=== PATIENT | male | born 2005 | race Caucasian/White ===

== ENCOUNTER 2024-10-25 22:18 | Inpatient (IN) | payer OTHER ==
[~2024-10-25] VITALS: Ht 167.6 cm; Wt 68.2 kg
[2024-10-25 23:18] LABS: BASO # 0.1 10^3/uL (0.0-0.2); EOS # 0.4 10^3/uL (0.0-0.5); EOS % 4.5 % (0.0-3.0); HEMATOCRIT 44.8 % (42.0-52.0); HEMOGLOBIN 15.2 g/dl (13.5-17.5); LYMPH # 3.5 10^3/uL (1.5-5.0); LYMPH % 35.4 % (24.0-44.0); MEAN CORPUSCULAR HEMOGLOBIN 28.9 pg (27.0-33.0); MEAN CORPUSCULAR HGB CONC 33.9 g/dl (32.0-36.5); MEAN CORPUSCULAR VOLUME 85.2 fl (80.0-96.0); MONO # 0.9 10^3/uL (0.0-0.8); MONO % 8.9 % (2.0-8.0); NEUTROPHILS # 4.9 10^3/uL (1.5-8.5); NEUTROPHILS % 50.1 % (36.0-66.0); PLATELET COUNT, AUTOMATED 230 10^3/uL (150-450); RED BLOOD COUNT 5.26 10^6/uL (4.30-6.10); WHITE BLOOD COUNT 9.8 10^3/uL (4.0-10.0)
[2024-10-25 23:38] LABS: INR 0.99; PARTIAL THROMBOPLASTIN TIME 24.7 SECONDS (24.8-34.2); PROTHROMBIN TIME 13.4 SECONDS (12.5-14.5)
[2024-10-25 23:42] LABS: ETHYL ALCOHOL (ETHANOL) < 0.003 % (0.000-0.010)
[2024-10-25 23:43] LABS: CPK CREATINE PHOSPHOKINASE 173 U/L (46-171)
[2024-10-25 23:44] LABS: SALICYLATE LEVEL < 3.0 MG/DL (<30)
[2024-10-25 23:46] LABS: ALBUMIN 4.2 G/DL (3.2-5.2); ALKALINE PHOSPHATASE 77 U/L (40-129); ALT/SGPT 15 U/L (7.0-40); AST/SGOT 15 U/L (<34); BILIRUBIN,DIRECT 0.1 MG/DL (<0.4); BILIRUBIN,TOTAL 0.3 MG/DL (0.3-1.2); BLOOD UREA NITROGEN 15 MG/DL (9-23); CALCIUM LEVEL 8.8 MG/DL (8.5-10.1); CARBON DIOXIDE LEVEL 26 MMOL/L (20-31); CHLORIDE LEVEL 104 MMOL/L (98-107); GLOMERULAR FILTRATION RATE > 90.0 (>60); GLUCOSE, FASTING 94 MG/DL (60-100); POTASSIUM SERUM 3.7 MMOL/L (3.5-5.1); SODIUM LEVEL 140 MMOL/L (136-145); THYROID STIMULATING HORMONE 2.753 uIU/ML (0.55-4.78); TOTAL PROTEIN 7.2 G/DL (5.7-8.2)
[2024-10-25] MEDS: NS (Normal Saline) 0.9% 1,000 ML IV ONE (23:53)
[2024-10-25 23:54] LABS: AMPHETAMINES LEVEL URINE NEGATIVE (NEGATIVE); BARBITURATES URINE NEGATIVE (NEGATIVE); BENZODIAZEPINES URINE NEGATIVE (NEGATIVE); CANNABINOIDS URINE NEGATIVE (NEGATIVE); COCAINE METABOLITE URINE NEGATIVE (NEGATIVE); METHADONE URINE NEGATIVE (NEGATIVE); PHENCYCLIDINE URINE NEGATIVE (NEGATIVE)
[2024-10-26 00:22] LABS: OPIATES URINE POSITIVE (NEGATIVE)
[2024-10-26] MEDS ORDERED: HOME MED LIST COMPLETE! XX SCH (08:40)
[2024-10-26 12:20] VITALS: BP 113/58; TEMP 98; O2SAT 99
[2024-10-26] MEDS ORDERED: MOM 30ML SUSPENSION UDC PO PRN (12:55)
[2024-10-26] MEDS ORDERED: OLANZapine ORAL DISINTEGRATING TAB 5MG PO PRN (12:55)
[2024-10-26] MEDS ORDERED: diphenhydrAMINE 25MG CAP PO PRN (12:55)
[2024-10-26] MEDS ORDERED: ACETAMINOPHEN 325 MG TAB PO PRN (12:55)
[2024-10-26] MEDS ORDERED: traZODone 50 MG TAB PO PRN (12:55)
[2024-10-26] MEDS ORDERED: IBUPROFEN 400MG TAB PO PRN (12:55)
[2024-10-26 16:31] VITALS: BP 128/69; TEMP 97.3; O2SAT 100
[2024-10-27 06:44] VITALS: BP 113/57; TEMP 97.8; O2SAT 97
[2024-10-27 15:18] VITALS: BP 122/59; TEMP 97.4; O2SAT 98
[2024-10-27] MEDS: PANTOPRAZOLE 40MG TAB (PROTONIX) PO SCH (17:05)
[2024-10-27] MEDS: MAALOX 30 ML SUSP *UDC PO PRN (17:12)
[2024-10-27 20:55] VITALS: BP 129/60
[2024-10-27] MEDS: PRAZOSIN 1 MG CAP PO SCH (20:55)
[2024-10-27] MEDS: MIRTAZAPINE 7.5MG PER 1/2 TABLET PO SCH (21:00)
[2024-10-28 06:18] VITALS: BP 99/63; TEMP 97.6; O2SAT 96
[2024-10-28] MEDS ORDERED: MIRT-10 PO (11:26)
[2024-10-28] MEDS ORDERED: PRAZ1CAP PO (11:26)
[2024-10-28 18:09] VITALS: BP 117/56; TEMP 97.5
[2024-10-29 06:36] VITALS: BP 118/62; TEMP 98.2; O2SAT 99
== END 2024-10-29 12:30 | disposition home or self-care (01) | DRG 881 ==
LOC: M ED 22:18 → M ED INP 10-26 09:21 → M PSY 10-26 12:30
PROVIDERS: ADMIT Psychiatry & Neurology Psychiatry; ATTEND Psychiatry & Neurology Psychiatry
DX: F32.A Depression, unspecified (principal); F17.290 Nicotine dependence, other tobacco product, uncomplicated; T40.2X2A Poisoning by other opioids, intentional self-harm, initial encounter; T14.91XA Suicide attempt, initial encounter; F43.10 Post-traumatic stress disorder, unspecified; H93.19 Tinnitus, unspecified ear; R13.10 Dysphagia, unspecified; Z91.82 Personal history of military deployment; Z91.018 Allergy to other foods